=== PATIENT | male | born 1965 | race Caucasian/White ===

== ENCOUNTER 2022-03-23 07:31 | Outpatient (CLI) | payer OTHER, SELFPAY ==
[2022-03-23 08:18] LABS: Creatinine Urine, Random 93 mg/dL (39-259); Microalbum Creatinine Ratio Ur 11 mg/dL (0-20); Microalbumin Random Urine 1 ug/dL (0-20)
[2022-03-23 08:19] LABS: Estmated Average Glucose 151; Hemoglobin A1C 6.9 % (4.0-6.0)
[2022-03-23 08:28] LABS: Alanine Aminotransferase 29 U/L (0-41); Albumin Level 3.8 g/dL (3.5-5.2); Alkaline Phosphatase 77 U/L (40-130); Anion Gap 12.5 (5-19); Aspartate Amino Transferase 20 U/L (0-40); Blood Urea Nitrogen 20 mg/dL (6-20); Calcium 8.8 mg/dL (8.5-10.5); Carbon Dioxide 26 mmol/L (22-29); Chloride 102 mmol/L (98-107); Chol HDL Ratio 5.75 mg/dL (1.0-5.00); Cholesterol 253 mg/dL (0-200); Globulin 2.9 g/dL (1.3-4.6); Glomerular Filtration Rate 117.5 mL/min (90-130); Glucose 133 mg/dL (65-115); HDL Cholesterol 44 mg/dL (60-100); LDL Cholesterol Calculated 176 mg/dL (50-129); Osmolality Calculated 287 mOsm/kg (285-295); Potassium 4.5 mmol/L (3.5-5.1); Prostate Specific Antigen 0.177 ng/mL (0-4); Sodium 136 mmol/L (136-145); Total Bilirubin 0.3 mg/dL (0.15-1.2); Total Protein 6.7 g/dL (6.6-8.7); Triglycerides 167 mg/dL (0-150)
== END 2022-03-23 07:32 | disposition home or self-care (01) ==
PROVIDERS: PCP Family Medicine; Visit Provider Family Medicine
DX: E78.00 Pure hypercholesterolemia, unspecified (principal); E11.9 Type 2 diabetes mellitus without complications; Z12.5 Encounter for screening for malignant neoplasm of prostate
CPT/HCPCS: 36415; 80053; 80061; 82044; 83036; 84153

== ENCOUNTER 2022-08-17 09:34 | Outpatient (CLI) | payer OTHER, SELFPAY ==
--- NOTE | 2022-08-17 | MR_ITS ---
WS: [id number] MRI RIGHT SHOULDER HISTORY: PAIN IN RIGHT SHOULDER COMPARISON: 12/25/2013 TECHNIQUE: Multiplanar sequences of the shoulder joint are submitted. Marked AC joint space narrowing. There is no edema or acute tear at the AC ligament. Hypertrophic bon e formation surrounding the AC joint. 4 mm osteophyte projects upon the myotendinous region of the suresh praspinatus. Small amount of fluid in the subacromial and subdeltoid bursa. Moderate subacromial impi ngement. 4 mm osteophyte narrows the subacromial distance and deforms the supraspinatus tendon. No os acromion. Biceps tendon appears to be in appropriate position. Mild narrowing of the glenohumeral joint. Subchondral edema along the posterior lateral humeral head with loss of cartilage. No muscle atrophy or edema. Distal supraspinatus tendon insertion site tear. Mild tendinopathy in the distal 3 to 4 cm of the ten don but no retraction or full-thickness tear. Subscapularis and infraspinatus tendons are intact. No definite labral tears are identified. There is some increased signal throughout the superior labrum w hich appears more intrasubstance degeneration. Additional loss of cartilage along the inferior glenoi d. MR/MR shoulder RT wo con* [id number] IMPRESSION: 1. Distal small insertion site tear supraspinatus tendon. There is additional tendinopathy in the more proximal tendon. 2. Moderate subacromial impingement on the supraspinatus tendon by an osteophy te from the acromion. 3. Marked AC joint arthritis. Distal clavicular osteophyte measures 4 mm encro aching upon the myotendinous portion of the supraspinatus. 4. No muscle edema or atrophy. 5. Degenerative changes involving the humeral head and glenoid. 6. Intrasubstance degeneration superior labrum. 7. Overall progression of degenerative changes and arthritis involving the asa ulder as compared to 2013.
== END 2022-08-17 09:35 | disposition home or self-care (01) ==
PROVIDERS: PCP Family Medicine; Visit Provider Family Medicine
DX: M25.511 Pain in right shoulder (principal); M13.811 Other specified arthritis, right shoulder; S46.911A Strain of unspecified muscle, fascia and tendon at shoulder and upper arm level, right arm, initial encounter; X58.XXXA Exposure to other specified factors, initial encounter
CPT/HCPCS: 73221

== ENCOUNTER → 2022-08-23 08:33 | Outpatient (BNVA) | payer OTHER, SELFPAY | PROVIDERS: PCP Family Medicine; Visit Provider Student in an Organized Health Care Education/Training Program | DX: M75.51 Bursitis of right shoulder (principal); M75.101 Unspecified rotator cuff tear or rupture of right shoulder, not specified as traumatic; M19.011 Primary osteoarthritis, right shoulder; M75.21 Bicipital tendinitis, right shoulder | CPT/HCPCS: 73030 ==

== ENCOUNTER → 2022-09-24 11:55 | Outpatient (BNVA) | payer OTHER, SELFPAY | PROVIDERS: PCP Family Medicine; Visit Provider Family Medicine | DX: Z01.818 Encounter for other preprocedural examination (principal) | CPT/HCPCS: 80053; 83036; 85025 ==

== ENCOUNTER 2022-09-28 11:16 | Day surgery (SDC) | payer OTHER, SELFPAY ==
[2022-09-27 09:36] VITALS: BMI 31.8
[2022-09-28] VITALS (13 sets, daily range): BP systolic 93–167; BP diastolic 64–131; PULSE 54–72; RESP 14–22; TEMP 35.9–36.7; O2SAT 90–100
--- NOTE | 2022-09-28 11:52 | ANES.PREANE2 ---
Pre-Anesthetic Assessment Height/Weight: Height 1.66 m Weight 87.543 kg Preop Diagnosis: Right shoulder rotator cuff tear subacromial impingement AC joint arthritis Operation Date: 09/28/22 12:05 Proposed Procedures p Shoulder Arthroscopy(Right) - Stan Grafton, DO s Subacromial Decompression(Right) - Stan Grafton, DO s AC Joint Resection(Right) - Stan Grafton, DO s Right shoulder diagnostic and surgical arthroscopy with arthorscopic rotator cuff repair, 49797? subacromial decompression, 77288? ac joint resection and biceps tendonotomy: , M75.101(Right) - Stan Zo, DO Familial anesthetic complications: None Was Beta Robert taken within 24 hours: N/A Was Clonidine taken within 24 hours: N/A Social Tobacco and No alcohol Exam alert, oriented x 3, clear to auscultation bilaterally and regular rate & rhythm Airway Mallampati: Class III Dentition: caps CV/HEM murmur, outside echo not available, but patient states asymptomatic and was told no need for intervention on heart Metabolic Diabetes Mellitus Anesthetic Plan ASA status: 3 Anesthesia: General and Regional (specify below) Risk of > 500 ml blood loss (7ml/kg in children): No Medications/Allergies Home Medications Medication Instructions Recorded Confirmed Last Taken Type citalopram 40 mg tablet (Celexa) 40 mg PO DAILY 08/23/22 09/27/22 09/27/22 History morphine 45 mg capsule,extended 45 mg PO DAILY 08/23/22 09/27/22 09/27/22 History release 24 hr multiphase oxycodone 30 mg tablet 30 mg PO Q4H PRN Pain 08/23/22 09/27/22 09/27/22 History albuterol sulfate 90 mcg/actuation 2 puff inhalation Q6H PRN 09/24/22 09/27/22 Unknown History aerosol inhaler Shortness Of Breath montelukast 10 mg tablet 10 mg PO DAILY 09/24/22 09/27/22 09/27/22 History (Haulair) Allergies Allergy/AdvReac Type Severity Reaction Status Date / Time No Known Allergies Allergy Verified 09/27/22 09:31 Data Anesthesia Cardiac Studies: No Data to Display
--- NOTE | 2022-09-28 12:17 | ANES.PROC ---
Anesthesia Procedures Procedure/Date: 09/28/22 Nerve Block ^: Nerve Block 1: Main Anesthesia: general anesthesia Time Out Performed: Yes Consent: requested by attending/covering physician, from patient, from other, risks and benefits reviewed and patient agrees to proceed Nerve block location: interscalene (R) Anesthesia monitors applied: pulse oximetry, EKG, BP cuff and oxygen Nerve block position: semi sitting Anesthetic Used: ropivicaine 0.5% (20 ml) and with decadron (4 mg) Ultrasound used to: recognize landmarks and visualize and ID interscalene groove Nerve Stimulator Used?: No Interscalene/Femoral BLK: 2 stimuplex 22 g needle used for position and inplane approach, visualize local anesthetic spread and no vascular puncture identified Injection: neg aspiration of heme and paresthesia +/- Patient Tolerated Procedure: well and no complications Complications: none
--- NOTE | 2022-09-28 12:20 | P.HP_ITS ---
Same Day Surgery H&P Indication for Procedure/HPI DATE OF PROCEDURE: September 28, 2022 CHIEF COMPLAINT/INDICATIONFOR SURGICAL PROCEDURE: Right shoulder rotator cuff tear, subacromial impingement, AC joint arthritis, biceps tendinitis/labral tearing PREOP DIAGNOSIS: Right shoulder rotator cuff tear subacromial impingement AC joint arthritis PLANNED PROCEDURE: Operation Date: 09/28/22 12:05 Proposed Procedures p Shoulder Arthroscopy(Right) - Stan Zo, DO s Subacromial Decompression(Right) - Stan Zo, DO s AC Joint Resection(Right) - Stan Armstrong, DO s Right shoulder diagnostic and surgical arthroscopy with arthorscopic rotator cuff repair, 32474? subacromial decompression, 60328? ac joint resection and biceps tendonotomy: , M75.101(Right) - Stan Armstrong, DO Unchanged HPI from office visit 08/23/2022. Patient has been seen and worked up in her preoperative clearance clinic and has been cleared to proceed with surgic al intervention and has been medically optimized. Medications/Allergies* Home Medications Medication Instructions Recorded Confirmed Type citalopram 40 mg tablet (Celexa) 40 mg PO DAILY 08/23/22 09/27/22 History morphine 45 mg capsule,extended 45 mg PO DAILY 08/23/22 09/27/22 History release 24 hr multiphase oxycodone 30 mg tablet 30 mg PO Q4H PRN Pain 08/23/22 09/27/22 History albuterol sulfate 90 mcg/actuation 2 puff inhalation Q6H PRN 09/24/22 09/28/22 History aerosol inhaler Shortness Of Breath montelukast 10 mg tablet 10 mg PO DAILY 09/24/22 09/27/22 History (Singulair) Allergies/Adverse Reactions Allergy/AdvReac Type Severity Reaction Status Date / Time No Known Allergies Allergy Verified 09/27/22 09:31 Pertinent Exam Findings alert, oriented x 3, operative site marked and procedure specific exam findings Examination of the right shoulder TTP UPPER TRAPEZIUM TTP AC JOINT TTP ANTERIOR, LATERAL AND POST OVER SHOULDER CUFF FOOT PRINT ACTIVE ROM 160 TO 180 PASSIVELY PAIN WITH JOBES TO 4/5 STRENGTH POSITIVE [place]'s POSITIVE CROSSOVER TEST LIMITED EXTERNAL rotation 20 degrees COMPARED TO 25 contralateral 4/5 EXTERNAL STRENGTH 4/5 INTERNAL STRENGTH POSITIVE SPEED TEST Positive [place] impingement Recommendations Surgery/Procedure today Other Plans: Plan to proceed with right shoulder diagnostic and surgical arthroscopy with arthroscopic rotator cuff repair AC joint resection, subacromial decompression, biceps tenotomy. Patient and understand and agree with current plan. All questions answered. They understand the risk benefits complication alternatives with surgical nonsurgical treatment options. Understanding risk of surgery they agree to proceed all questions answered. Coding Level of Care Code Acute Code for Chg Fwd Diagnoses
[2022-09-28] MEDS: ketorolac 30 mg/mL INJ IVP (12:25)
[2022-09-28] MEDS: acetaminophen 1,000 MG/100 ML PIGGYBACK 400 MG IV (12:29)
[2022-09-28] MEDS: sodium chloride 0.9% 1,000 ML 30 ML IV (12:30)
[2022-09-28] MEDS: ceFAZolin 2,000 MG in sodium chloride 0.9% (plus) 50 ML 100 MG IV (13:13)
[2022-09-28] MEDS: EPINEPHrine 1 mg/mL INJ 2 MG XX (14:01)
--- NOTE | 2022-09-28 14:08 | SUR.OPER ---
notified of surgical start and progress.
--- NOTE | 2022-09-28 15:09 | PM.OP2 ---
Brief Operative Note Date of procedure: 09/28/22 Pre-op diagnosis: Right shoulder rotator cuff tear, subacromial impingement, AC joint arthrit Post-op diagnosis: same (AC joint arthritis, biceps tendinitis and labral tearing) Procedure Done: Right shoulder diagnostic and surgical arthroscopy with arthroscopic rotator cuff repair Right shoulder diagnostic and surgical arthroscopy subacromial decompression (acromioplasty and bursectomy) Right shoulder diagnostic and surgical arthroscopy AC joint resection (distal clavicle resection) Right shoulder diagnostic and surgical arthroscopy biceps tenotomy Right shoulder diagnostic and surgical arthroscopy with labral debridement Surgeon: Stan Pathak Estimated blood loss (mL): 10 Complications: None Post-op Plan: Patient taken to PACU in stable condition. Recovering well. Patient will receive appropriate discharge instructions as well as pain medication postoperatively. Will be nonweightbearing to the right shoulder will follow rotator cuff repair protocol Follow-up in the orthopedic office in 2 weeks Contact the office for any questions or concerns Condition: stable Disposition: same day Coding Level of Care Code Acute Code for Tato Higgins
--- NOTE | 2022-09-28 15:21 | P.OP_ITS ---
Operative Report Date of procedure: September 28, 2022 Pre-op diagnosis: Preop Diagnosis Right shoulder rotator cuff tear subacromial impingement AC joint arthritis Procedure: Post-op diagnosis: Right shoulder labral tear Right shoulder biceps tendon tear Right shoulder rotator cuff tear Right shoulder AC joint arthritis Right shoulder subacromial bursitis/impingement Procedure done: Right shoulder diagnostic and surgical arthroscopy with arthroscopic rotator cuff repair Right shoulder diagnostic and surgical arthroscopy biceps tenotomy Right shoulder diagnostic and surgical arthroscopy labral debridement Right shoulder diagnostic and surgical arthroscopy acromioclavicular joint resection Right shoulder diagnostic and surgical arthroscopy subacromial decompression (acromioplasty and bursectomy) Surgeon: Stan Pathak DO Estimated blood loss: 10mL IV fluids: See anesthesia record Implants: Arthrex 4.75 swivel lock Arthrex scorpion and suture tape Complications: None Condition: stable Disposition: same day Brief History: Patient been seen and worked up in the outpatient setting for right shoulder pain.? Pt had an MRI which showed findings below.? Patient's failed conservative treatment and has substantial weakness.? We talked about treatment options far as nonoperative and operative intervention..? We talked about risk benefits complication alternatives surgical nonsurgical treatment options.? Understanding risk of surgery he agrees to proceed with surgical intervention.? All questions have been answered at this time.? Patient elects proceed with surgery and consent obtained in office. MR/MR shoulder RT wo con* [id number] IMPRESSION: ? 1.? Distal small insertion site tear supraspinatus tendon. There is additional tendinopathy in the more proximal tendon. 2.? Moderate subacromial impingement on the supraspinatus tendon by an osteophyte from the acromion. 3.? Marked AC joint arthritis. Distal clavicular osteophyte measures 4 mm encroaching upon the myotendinous portion of the supraspinatus. 4.? No muscle edema or atrophy. 5.? Degenerative changes involving the humeral head and glenoid. 6.? Intrasubstance degeneration superior labrum. 7.? Overall progression of degenerative changes and arthritis involving the shoulder as compared to 2014. Procedure: Patient seen evaluated in the preoperative holding area.? Consent reviewed and signed with patient.? Once again reviewed patient's MRI results as well as planned surgical intervention.? Correct extremity marked.? Patient seen evaluated by anesthesia department received regional anesthesia.? Once ready for surgery was taken back to the operative suite.? Patient then subsequently underwent anesthesia per the anesthesia department was transported onto the OR table.? Patient was then placed into a lateral decubitus position with a beanbag and was appropriately secured to the bed.? All bony prominences well-padded.? Patient then had the right upper extremity was then prepped and draped in standard orthopedic fashion.? Patient received appropriate preoperative antibiotics.? Final timeout performed. The right upper extremity was then held in hanging from traction utilizing sterile technique.? Next started with standard diagnostic and surgical arthroscopy with posterior portal position introduced arthroscope into the glenohumeral joint.? Visualized the glenohumeral joint I then introduced a spinal needle within the rotator cuff interval to confirm appropriate anterior portal placement.? Once this was confirmed I then made my small incision and then introduced my arthroscopic shaver into the glenohumeral joint.? After thorough debridement was clearly evident patient had a significant erythema as well as positive liftoff sign of the biceps anchor and biceps tendon tear as it was pulled within the joint.? Decision at this time was made to perform a biceps tenotomy.? Introduced a thermal wand and a biceps tenotomy was performed to completion With appropriate release.? Next I evaluated the subscapularis tendon which was intact. ?Next there was significant labral tearing at biceps anchor and circumferential. ? I then subsequently utilized a a arthroscopic shaver and thermal wand to perform a labral debridement.? This point time I then visualized the glenohumeral joint.? The glenohumeral joint was found to have grade I chondromalacia throughout.? Infrapatellar pouch was free of loose bodies from viewing the posterior portal.? Next a visualized the rotator cuff superiorly and there was found to be a small tear of the supraspinatus tendon.? I utilized a spinal needle to christian this location.?? This completed my work within the glenohumeral joint all fluid was suctioned free of the joint.? ?Next I reintroduced the arthroscope posteriorly.? And went to the subacromial space.? I established my lateral working portal at the site of which my spinal needle was marking of the rotator cuff tear.? Thermal wand was then introduced laterally and then I subsequently performed extensive bursectomy of the subacromial space.? Patient had a large anterior bone spur.? At this point time I proceeded with my AC joint resection thermal wand was used and track to the anterior edge of the acromion and then tracked all the way to the AC joint.? Once identified the AC joint this was very arthritic in nature.? Thermal wand was placed anteriorly to establish appropriate plane for AC joint resection.? Once appropriate margins and anterior inferior and anterior capsule was released I then introduced arthroscopic shaver and a bur and performed AC joint resection of both the acromion to cope plane at the AC joint and a distal clavicle resection was then performed totaling 1 cm in size and was confirmed.? This completed my AC joint resection and I then introduced the arthroscopic shaver laterally while continuing to view posteriorly.? I then performed an acromioplasty to complete my subacromial decompression prior to fixing the rotator cuff tear.? Next the arthroscopic shaver was then used previous spinal needle spot that is marked the small hole in the rotator cuff this was consistent with a small full- thickness tear. Given the small size this did not need a medial and lateral row configuration as result my plan was for a horizontal mattress stitch with a single lateral row anchor. As result I establish my lateral passport cannula. I loaded and Arthrex scorpion with fiber tape and subsequently. A horizontal mattress purchase appropriately spaced to the small tear of the supraspinatus tendon. At this point in time and then introduced a shaver to debride the rotator cuff footprint and decorticate the footprint in preparation for repair, next I marked by swivel lock position. Fiber tape was then loaded into a 475 swivel lock I then subsequently punched and then subsequently placement 475 swivel lock while maintaining appropriate tension and repair of rotator cuff and this was advanced with excellent fixation I then had a final confirmation of appropriate repair of the supraspinatus rotator cuff tendon tear. Sutures were then cut with an arthroscopic suture cutter and subsequently evaluated the rotator cuff repair. This was confirmed to be in satisfactory and the rotator cuff was then stressed and the shoulder was removed and repair satisfactory. I then switched the arthroscope to the lateral portal to confirm this tension- free repair.? I took the shoulder through range of motion and the rotator cuff repair was stable and moved as a unit. ?Next I then introduced the arthroscopic shaver posteriorly to complete my subacromial decompression appropriate complaining all the way up to the lateral edge of the acromion.? This completed the surgery.? All fluid was suctioned from the shoulder.? All instruments were removed.? The lateral incision was then closed with 2-0 Vicryl and nylon stitches.? As well as the portal sites closed with portal nylon stitches.? Xeroform 4 x 4's ABD and tape was then applied to the right shoulder and was placed into a shoulder abduction pillow sling for rotator cuff repair.? Patient was then awakened from anesthesia and then taken back to PACU in stable condition.? Patient tolerated procedure without any issues. Disposition: Patient taken back in stable condition recovering well.? Dressings on in place clean dry and intact.? Will be nonweightbearing to the right upper extremity.? Follow rotator cuff repair protocol.? Patient to follow-up with me in the office in 2 weeks.? Patient will receive appropriate discharge instruction as well as pain medication postoperatively.? All questions answered.? We will contact the office for any questions or concerns.
--- NOTE | 2022-09-28 15:21 | PM.PACU ---
PACU note Narrative: Patient taken to PACU in stable condition recovering well regional anesthesia still on effect unable to assess motor or sensory. Distal pulses are palpable hands warm well perfused dressings on in place clean dry and intact. Patient's in a sling with abduction pillow. Exam: awake Disposition: discharged
[2022-09-28] MEDS: ipratropium-albuterol 3 mL Neb INHALATION (15:31)
--- NOTE | 2022-09-28 15:57 | ANE.PACU2 ---
Inpatient post-anesthesia follow up: Airway intact: Yes Vital signs: Temperature 96.7 F Pulse Rate 57 Respiratory Rate 16 Blood Pressure 103/64 Pulse Oximetry 90 Oxygen Delivery Me thod Nasal Cannula Oxygen Flow Rate 2 Fraction of Inspir ed Oxygen Hydration adequate: Yes Nausea and vomiting: Yes Pain level: 1 Mental status: Baseline
== END 2022-09-28 17:10 | disposition home or self-care (01) ==
PROVIDERS: PCP Family Medicine; Visit Provider Student in an Organized Health Care Education/Training Program
PROC: (CPT 29805; principal; 2022-09-28 11:55)
PROC: (CPT 29826; 2022-09-28 11:55)
PROC: 0RSG0ZZ Reposition Right Acromioclavicular Joint, Open Approach (ICD-10-PCS; CPT 23405; 2022-09-28 11:55)
PROC: (CPT 24310; 2022-09-28 11:55)
DX: S43.401A Unspecified sprain of right shoulder joint, initial encounter; M19.011 Primary osteoarthritis, right shoulder; M75.41 Impingement syndrome of right shoulder; S46.211A Strain of muscle, fascia and tendon of other parts of biceps, right arm, initial encounter; S46.011A Strain of muscle(s) and tendon(s) of the rotator cuff of right shoulder, initial encounter; X58.XXXA Exposure to other specified factors, initial encounter; Z79.891 Long term (current) use of opiate analgesic; E11.9 Type 2 diabetes mellitus without complications
CPT/HCPCS: 23405; 29824; 29826; 29827; 36415; 86850; 86900; C1713; J0131; J0171; J0690; J1100; J1885; J2250; J2405; J2704; J3490; J7030